=== PATIENT | female | born 1940 | race Caucasian/White ===

== ENCOUNTER → 2016-12-10 | Outpatient (CLI) | payer OTHER ==
[~2016-12-10] MED LIST: OXYC1TAB3 PO
[2016-12-10 09:37] LABS: BASO % 0.7 %; BASO ABS # 0.03 K/uL (0-0.2); COMPLETE YES; EOS % 5.6 %; HEMATOCRIT 44.7 % (37-47); IG% 0.2 %; LYMPH % 30.6 %; LYMPH ABS # 1.36 K/uL (1.2-3.4); MEAN CELL VOLUME 94.9 fL (80-100); MEAN CORPUSCULAR HGB CONC 32.7 g/dl (32-36); MEAN PLATELET VOLUME 9.4 fL (7.4-10.4); MONO % 10.8 %; NEUT % 52.1 %; PLATELET COUNT 204 K/uL (130-400); RED BLOOD COUNT 4.71 M/uL (4.2-5.4); WHITE BLOOD COUNT 4.45 K/uL (4.8-10.8)
[2016-12-10 10:06] LABS: ALT/SGPT 40 U/L (12-78); BLOOD UREA NITROGEN 16 mg/dl (7-18); BUN/CREATININE RATIO 22.1 (10-20); CARBON DIOXIDE 28 mmol/L (21-32); CHLORIDE 106 mmol/L (98-107); CREATININE 0.73 mg/dl (0.60-1.20); GLUCOSE 97 mg/dl (70-99); POTASSIUM 5.1 mmol/L (3.5-5.1); SODIUM 139 mmol/L (136-145)
[2016-12-10 10:17] LABS: ALB/GLOB RATIO 1.2 (0.9-2); ALKALINE PHOSPHATASE 97 U/L (45-117); AST/SGOT 32 U/L (15-37); ESTIMATED AVERAGE GLUCOSE 114 mg/dl; HA1C FLAG Normal (Normal); THYROID STIMULATING HORMONE 0.949 uIu/ml (0.300-4.500)
== END | disposition home or self-care (01) ==
LOC: C.LAB1850 06:47
PROVIDERS: ATTEND Internal Medicine
DX: Z00.00 Encounter for general adult medical examination without abnormal findings (principal); R42 Dizziness and giddiness; R73.9 Hyperglycemia, unspecified; D72.819 Decreased white blood cell count, unspecified; E03.9 Hypothyroidism, unspecified

== ENCOUNTER → 2017-11-18 | Outpatient (CLI) | payer OTHER ==
[2017-11-18 09:46] LABS: BASO % 1.4 %; BASO ABS # 0.06 K/uL (0-0.2); EOS % 8.7 %; EOS ABS # 0.36 K/uL (0-0.5); HEMATOCRIT 43.8 % (37-47); HEMOGLOBIN 14.5 g/dL (12.0-16.0); LYMPH % 40.2 %; LYMPH ABS # 1.67 K/uL (1.2-3.4); MEAN CELL VOLUME 91.6 fL (80-100); MEAN CORPUSCULAR HEMOGLOBIN 30.3 pg (25-34); MEAN CORPUSCULAR HGB CONC 33.1 g/dl (32-36); MEAN PLATELET VOLUME 9.2 fL (7.4-10.4); MONO % 9.9 %; MONO ABS # 0.41 K/uL (0.11-0.59); NEUT % 39.8 %; NEUT ABS # 1.65 K/uL (1.4-6.5); PLATELET COUNT 224 K/uL (130-400); RED CELL DISTRIBUTION WIDTH CV 13.6 % (11.5-14.5); WHITE BLOOD COUNT 4.15 K/uL (4.8-10.8)
[2017-11-18 09:49] LABS: BLOOD UREA NITROGEN 16 mg/dl (7-18); CALCIUM 8.6 mg/dl (8.5-10.1); CARBON DIOXIDE 28 mmol/L (21-32); CHOLESTEROL 176 mg/dl (0-200); CREATININE 0.74 mg/dl (0.60-1.20); GLUCOSE 92 mg/dl (70-99); SODIUM 136 mmol/L (136-145)
[2017-11-18 09:59] LABS: LDL CHOLESTEROL CALCULATED 78 mg/dl
[2017-11-18 10:10] LABS: HEMOGLOBIN A1C 5.6 % (4.5-5.6)
== END | disposition home or self-care (01) ==
LOC: C.LAB1850 07:02
PROVIDERS: ATTEND Internal Medicine
DX: D72.819 Decreased white blood cell count, unspecified (principal); E03.9 Hypothyroidism, unspecified; R73.9 Hyperglycemia, unspecified

== ENCOUNTER 2023-05-19 12:43 | Observation (INO) ==
[2023-05-19] MEDS ORDERED: ONDANSETRON INJ 2 MG/ML 2 ML VIAL ONE (13:15)
[2023-05-19] MEDS ORDERED: dilTIAZem HCl 5 MG/ML 5 ML VIAL IV STA (13:31)
[2023-05-19 13:38] LABS: Hemoglobin 15.2 g/dl (12.0-16.0); Mean Corpuscular Hemoglobin 29.8 pg (25.0-34.0); Mean Corpuscular Volume 90.2 fL (80.0-100.0); Mean Platelet Volume 8.9 fL (9.4-12.4); Platelet Count 253 K/uL (130-400); RDW Coefficient of Variation 13.2 % (11.5-14.5); White Blood Count 6.24 K/ul (4.8-10.8)
[2023-05-19] MEDS ORDERED: SODIUM CHLORIDE 0.9% 1,000 ML IV SCH (13:45)
[2023-05-19 13:50] LABS: Albumin Globulin Ratio 1.5 (0.9-2); Albumin Level 4.5 gm/dl (3.4-5.0); BUN Creatinine Ratio 25.4 (10-20); Bilirubin,Total 0.6 mg/dl (0.2-1.0); Calcium 9.5 mg/dl (8.6-10.3); Creatinine Clr Calc Pharmacy 58.9 ml/min; Est GFR (African American) 95.5 ml/min; Est GFR (Non-African American) 82.4 ml/min; Globulin 3.1 gm/dl (2.5-4.0); Magnesium 2.3 mg/dl (1.7-2.4); Potassium 3.9 mmol/L (3.5-5.1); Total Protein 7.6 gm/dl (6.0-8.3)
[2023-05-19] MEDS ORDERED: OPTIRAY 320 500ml IV ONE (14:00)
[2023-05-19 14:04] LABS: Partial Thromboplastin Time 27.3 Seconds (21.0-31.0); Prothrombin Time 11.2 Seconds (9.0-12.0)
--- NOTE | 2023-05-19 14:11 | XRay Report ---
XR chest 1V portable CLINICAL HISTORY: stroke alert COMPARISON STUDY: No previous studies for comparison. FINDINGS: Lung volumes are normal. Lungs are clear. There is no pneumothorax or pleural effusion. Car diac size is normal. Mediastinal contours are normal. There is no evidence for pulmonary edema. IMPRESSION: No acute cardiopulmonary findings. ACT 112: Negative or not required by law. Electronically signed by: Jared Moraes M.D. 05/19/2023 2:10 PM
--- NOTE | 2023-05-19 14:30 | CT Scan Report ---
CT OF THE HEAD WITHOUT CONTRAST CLINICAL HISTORY: Neuro deficit, acute, stroke suspected COMPARISON STUDY: Sinus CT May 27, 2018. TECHNIQUE: Helical axial images of the head were obtained without IV contrast. Automated exposure con trol was utilized for the study. A dose lowering technique was utilized adhering to the principles o f ALARA. FINDINGS: No acute intracranial hemorrhage, midline shift or mass effect is present. The ventricular system is unremarkable. The basal cisterns are patent. No extra-axial collections are present. There are no findings to suggest acute dural sinus thrombosis or acute territorial infarct. No significant calvarial abnormalities are present. Right parafalcine calcification/ossification is incidentally not ed. IMPRESSION: No acute intracranial findings. ACT 112: Negative or not required by law. Electronically signed by: Jared Moraes M.D. 05/19/2023 2:29 PM
--- NOTE | 2023-05-19 14:32 | CT Scan Report ---
CT ANGIOGRAM OF THE NECK CLINICAL HISTORY: Neurological deficit. Stroke like symptoms. COMPARISON STUDY: No priors. TECHNIQUE: Following the IV administration of 111 of Optiray 320, CT angiogram of the neck was perfor med from the aortic arch to the skull base. Images are reviewed in the axial, sagittal, and coronal p lanes. 3-D MIPS images are created and assessed. IV contrast was administered without complication. A ll measurements were calculated based on NASCET criteria. A dose lowering technique was utilized adh ering to the principles of ALARA. FINDINGS: Thoracic aorta: Visualized portions of the thoracic aorta are normal in caliber. The aortic arch demo nstrates standard 3-vessel anatomy. Right carotid arterial system: The right common carotid artery is widely patent, as are the right int ernal and external carotid arteries. The right internal carotid artery demonstrates a beaded appearan ce. Left carotid arterial system: The left common carotid artery is widely patent, as are the left environmental health and safety intern al and external carotid arteries. The left internal carotid artery demonstrates a beaded appearance. Vertebral arteries: The vertebral arteries are widely patent bilaterally noting left-sided dominance. The right vertebral artery is diminutive. Subclavian arteries: Widely patent bilaterally. Intracranial vasculature: The visualized intracranial vessels at the skull base are patent. Jugular veins: Widely patent bilaterally. Brain parenchyma: The visualized brain parenchyma the skull base is within normal limits. Lung apices: Partially visualized upper lobe lung parenchyma appears clear. Soft tissues: The visualized pharyngeal soft tissues are normal in appearance noting angiographic pha se technique. The oropharyngeal airway appears widely patent. The thyroid gland is atrophic. The sali vary glands are normal in appearance. No cervical lymphadenopathy is seen. Skeletal structures: The skeletal structures are osteopenic. The visualized calvarium at the skull ba se appears intact. The imaged cervical spine is maintained noting mild multilevel spondylosis. Sinuses and mastoids: The visualized paranasal sinuses are clear. The mastoid air cells are well pneu matized. IMPRESSION: 1. The internal carotid arteries demonstrate a beaded appearance bilaterally suggesting fibromuscular dysplasia. 2. Otherwise unremarkable CT angiogram of the neck. The carotid and vertebral arteries are widely pat ent bilaterally. ACT 112: Negative or not required by law. Electronically signed by: Keegan Foote M.D. 05/19/2023 2:31 PM
[2023-05-19 14:33] LABS: Troponin I High Sensitivity 8.2 pg/ml (0-14)
--- NOTE | 2023-05-19 14:42 | CT Scan Report ---
HEAD CTA HISTORY: neuro deficit, acute stroke suspected TECHNIQUE: Multiaxial CT images of the head were performed both before and after the intravenous admi nistration of contrast to evaluate the major cerebral vessels. 3D/MIP images were also obtained. Sag ittal and coronal reformats were reviewed. A dose lowering technique was utilized adhering to the char [place]. COMPARISON: None. FINDINGS: There is no mass, hematoma, midline shift, or acute infarct. Visualized intracranial actuarial internship al carotid arteries, distal vertebral arteries, and basilar artery are widely patent. There is no sig nificant stenosis, occlusion, or aneurysm seen within the bilateral ACAs, MCAs, or plisse machine operator helper. Right parafa lcine calcification is noted. The major dural venous sinuses appear patent. The slightly hypoplastic distal right vertebral artery terminates into the right posterior inferior cerebellar artery. This is considered to be a normal variant. Therefore, the basilar artery is fed through the dominant left ve rtebral artery. There is a persistent left posterior circulation. IMPRESSION: No significant stenosis, occlusion, or aneurysm within the [place]. ACT 112: Negative or not required by law. Electronically signed by: Deepak Street M.D. 05/19/2023 2:39 PM
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
[2023-05-19 15:16] LABS: Basophils # (auto) 0.05 K/uL (0.00-0.20); Basophils % (auto) 0.8 %; Eosinophils # (auto) 0.02 K/uL (0.00-0.50); Eosinophils % (auto) 0.3 %; Immature Granulocytes # (auto) 0.02 K/uL (0.01-0.20); Immature Granulocytes % (auto) 0.3 %; Lymphocytes # (auto) 0.83 K/uL (1.20-3.40); Lymphocytes % (auto) 13.8 %; Monocytes # (auto) 0.15 K/uL (0.11-0.59); Monocytes % (auto) 2.5 %; Neutrophils # (auto) 4.96 K/uL (1.40-6.50); Neutrophils % (auto) 82.3 %
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
[2023-05-19] MEDS ORDERED: ACETAMINOPHEN 325 MG TAB PO STA ×2 (16:51→17:46)
--- NOTE | 2023-05-19 17:38 | Electrocardiogram Report ---
Test Reason : Blood Pressure : / mmHG Vent. Rate : 130 BPM Atrial Rate : 000 BPM P-R Int : 000 ms QRS Dur : 070 ms QT Int : 304 ms P-R-T Axes : 000 068 050 degrees QTc Int : 447 ms Atrial fibrillation with rapid ventricular response Nonspecific ST abnormality Abnormal ECG When compared with ECG of 26-FEB-2005 10:15, Atrial fibrillation has replaced Sinus rhythm Vent. rate has increased BY [address] now depressed in Inferior leads ST now depressed in Anterior leads Nonspecific T wave abnormality now evident in Inferior leads T wave amplitude has increased in Anterior leads Confirmed by Angel Tavarez ([id number]) on 05/19/2023 5:38:06 PM Referred By: REFERRED SELF Confirmed By:Estrada Tavarez
[2023-05-19] MEDS ORDERED: ONDANSETRON INJ 2 MG/ML 2 ML VIAL IV STA (17:47)
[2023-05-19] MEDS ORDERED: METOPROLOL TARTRATE 25 MG TAB PO STA (17:48)
[2023-05-19 18:11] LABS: C Reactive Protein < 0.50 mg/dl (0-0.5)
[2023-05-19 18:20] LABS: Troponin I High Sensitivity 12.3 pg/ml (0-14)
[2023-05-19 19:07] LABS: T4 Free Thyroxine 0.87 ng/dl (0.61-1.60)
--- NOTE | 2023-05-19 20:18 | Magnetic Resonance Report ---
Exam(s): MRI HEAD Without Contrast EXAM: MR Head Without Intravenous Contrast CLINICAL HISTORY: Reason for exam: left facial/arm numbness. TECHNIQUE: Magnetic resonance images of the head/brain without intravenous contrast in multiple planes. COMPARISON: No relevant prior studies available. FINDINGS: No acute territorial infarct. No acute intracranial hemorrhage. No midline shift or mass effect. The territorial lin-white matter differentiation is maintained throughout. Age-related cerebral volume loss. Periventricular and subcortical white matter T2 signal intensity, consistent with chronic microangiopathy. The visualized orbits appear grossly unremarkable. The calvarium is intact. The visualized paranasal sinuses and mastoid air cells are grossly clear. IMPRESSION: No acute territorial infarct. No acute intracranial hemorrhage. No midline shift or mass effect. Electronically signed by: Grey Piper MD 05/19/23 20:17 PM
[2023-05-19] MEDS ORDERED: LORazepam 0.5 MG TAB PO PRN (21:17)
[2023-05-19] MEDS ORDERED: CETIRIZINE HCL 10 MG TABLET PO PRN (21:17)
[2023-05-19] MEDS: CYCLOBENZAPRINE HCL 10 MG TAB PO PRN (22:52)
[2023-05-19] MEDS: APIXABAN 5 MG TABLET PO SCH (23:31)
[2023-05-20 07:36] LABS: Basophils # (auto) 0.06 K/uL (0.00-0.20); Basophils % (auto) 1.1 %; Eosinophils # (auto) 0.17 K/uL (0.00-0.50); Hematocrit (blood only) 38.8 % (37.0-47.0); Hemoglobin 12.7 g/dl (12.0-16.0); Immature Granulocytes # (auto) 0.01 K/uL (0.01-0.20); Immature Granulocytes % (auto) 0.2 %; Lymphocytes # (auto) 1.39 K/uL (1.20-3.40); Lymphocytes % (auto) 24.9 %; Mean Corpuscular Hgb Conc 32.7 g/dL (32.0-36.0); Mean Corpuscular Volume 91.5 fL (80.0-100.0); Mean Platelet Volume 8.9 fL (9.4-12.4); Monocytes % (auto) 10.7 %; Neutrophils # (auto) 3.36 K/uL (1.40-6.50); Neutrophils % (auto) 60.1 %; Platelet Count 219 K/uL (130-400); RDW Coefficient of Variation 13.5 % (11.5-14.5); RDW Standard Deviation 45.7 fL (36.4-46.3); Red Blood Count 4.24 M/uL (4.20-5.40); White Blood Count 5.59 K/ul (4.8-10.8)
[2023-05-20 07:57] LABS: BUN Creatinine Ratio 18.8 (10-20); Calcium 8.7 mg/dl (8.6-10.3); Creatinine Clr Calc Pharmacy 57.2 ml/min; Est GFR (African American) 94.6 ml/min; Est GFR (Non-African American) 81.6 ml/min; Potassium 4.1 mmol/L (3.5-5.1)
[2023-05-20] MEDS: APIXABAN 5 MG TABLET PO SCH (08:27)
[2023-05-20] MEDS: CYCLOBENZAPRINE HCL 10 MG TAB PO PRN (08:27)
[2023-05-20] MEDS ORDERED: METOPROLOL TARTRATE 25 MG TAB PO SCH (09:00)
--- NOTE | 2023-05-20 12:00 | XCELERA ---
[id number]
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
--- NOTE | 2023-05-20 15:43 | Cardiology Consultation ---
Date of Consultation May 20, 2023 Assessment & Plan (1) New onset atrial fibrillation: (2) Mitral regurgitation: Plan 1. Atrial fibrillation: No documented history of atrial fibrillation previously. She feels that occasionally she will have some exertional intolerance perhaps related atrial fibrillation. Very rare sensation of palpitations or tachycardia. She is not very symptomatic with the episode presentation. . She eventually converted to a sinus rhythm. Echocardiogram demonstrated on [id number] mitral regurgitation. No severe heart disease. Normal LV function overall. Likely etiology of her atrial fibrillation is simply age. Based on her risk factors she should undergo systemic anticoagulation. We discussed options. She does take some nonsteroidal medications on occasion for her neck pain. This was discouraged with initiation of anticoagulation. I will continue metoprolol tartrate 25 mg twice daily. She appears to be a good candidate for either Xarelto or Eliquis at the time of discharge. Patient can follow-up in our clinic or with her primary care physician Dr. Daniels for continued management and adjustment of medications if needed. 2. Mitral regurgitation: Mild to moderate. Normal LV systolic function. Unlikely to be a significant problem with the course of her lifetime. This can be monitored over time History of Present Illness Reason for Consultation: Atrial fibrillation Requesting Physician: Julio Cesar Attending Physician: Acosta Harrell MD History of Present Illness The patient is an 83-year-old woman without a known history of cardiac disease presents to the hospital for symptoms of neck and head discomfort. He has suffered from similar symptoms in the past. She was doing some physical activity which likely exacerbated this condition. When she presented to the emergency room she was noted to have atrial fibrillation and elevated heart rates. She was not aware of palpitations. However, she does occasionally experience some higher heart rates. She also reports an element of exertional dyspnea at times which is fairly transient. The patient was administered and provided some analgesics. Shortly after admission she converted back to a normal sinus rhythm. At time my interview she states she still has some residual neck discomfort. However, she is generally feeling well. She has been ambulatory. She denies any dizziness or shortness of breath currently. No chest pain. No history of chest pain. Allergies Allergy/AdvReac Type Severity Reaction Status Date / Time chloramphenicol Allergy Unknown ANAPHYLAXIS Verified 05/19/23 17:13 nitrofurantoin Allergy Unknown Unknown Verified 05/19/23 17:13 Penicillins Allergy Unknown ANAPHYLAXIS Verified 05/19/23 17:13 Demerol TABS Allergy Unknown Unknown Uncoded 05/19/23 17:13 Methocarbamol TABS Allergy Unknown Unknown Uncoded 05/19/23 17:13 Home Medications Medication Instructions Recorded Confirmed Type cetirizine 10 mg tablet (Zyrtec) 5 mg PO DAILY PRN Allergy Symptoms 01/02/20 05/19/23 History cyclobenzaprine 10 mg tablet 10 mg PO TID PRN muscle spasm #90 01/21/23 05/19/23 Rx tabs lorazepam 0.5 mg tablet 0.5 mg PO TID PRN anxiety #90 tabs 01/25/23 05/19/23 Rx Thyroid Surveying Teacher 2 units PO DAILY 05/19/23 05/19/23 History apixaban 5 mg tablet (Eliquis) 5 mg PO BID #60 tabs 05/20/23 Rx metoprolol tartrate 25 mg tablet 25 mg PO BID #60 tabs 05/20/23 Rx Patient History Medical History (Updated 05/20/23 @ 15:39 by Angel Tavarez MD) Health care maintenance Leukopenia Chronic low back pain Hyperglycemia Hypothyroidism Surgical History S/P mastectomy, bilateral S/P tonsillectomy and adenoidectomy S/P cystoscopy Family History Mother Breast cancer Colorectal cancer Nephrolithiasis Father Heart disease Myocardial infarction Son Nephrolithiasis Uncle Nephrolithiasis Gastric cancer Grandfather (Maternal) Gastric cancer Other Crohn's disease Denies family history of Ovarian cancer Prostate cancer Social History Smoking Status: Never smoker Second Hand Exposure: Yes; Hx Alcohol Use: No Hx Substance Use: No Preferred Language: Croatian Communication Ability: Effective Visual Impairment: No Limitations Hearing Ability: Normal Hospice Aide Required: No Beliefs That Will Affect Care: None marital status: / Current Living Situation: Alone Current Living Situation Comment: single family house current occupational status: retired Feels Safe at Home: Yes Childhood Exposure to Second-Hand Smoke: Yes Dental Care, Regularly: Yes Physical Activity Frequency: Daily Physical Activity Frequency Comment: walking Seatbelt Use: always Sunscreen Use: No Assistive Devices: None Review of Systems Review of Systems: Per HPI Physical Exam Physical Exam: She is alert and oriented x3. Mood affect appear normal. She answered all questions appropriately. HEENT: Sclerae are anicteric. Pupils are equal and reactive to light and accommodation. Extraocular movements were intact. Neuro: Cranial nerves intact Lungs: Lungs are clear to auscultation bilaterally. There are no rales wheezes or rhonchi. She has normal respiratory effort without use of accessory muscles. There is normal pulmonary excursion. Cardiac: The rhythm was regular. S1 and S2 were normal. There are no murmurs on examination. The PMI was not markedly displaced on palpation. Extremities: Patient has bilateral radial pulses that are equal in intensity. There is no evidence cyanosis or clubbing. There was no evidence of significant peripheral edema bilaterally. Skin: There are no rashes noted on examination today. Results & Data Vital Signs (Past 12 Hours) Vital Signs Temp Pulse Pulse Pulse Resp BP Pulse Ox 05/20/23 14:02 36.9 C 66 77 16 123/78 97 05/20/23 11:51 36.9 C 66 16 123/78 97 05/20/23 07:42 36.7 C 72 16 131/75 95 05/20/23 07:19 71 05/20/23 04:31 36.5 C 77 18 116/65 93 O2 Del Method 05/20/23 14:02 05/20/23 11:51 Room Air 05/20/23 07:42 Room Air 05/20/23 07:19 05/20/23 04:31 Room Air Laboratory Results Abnormal Lab Results 05/19/23 05/19/23 05/20/23 13:14 17:38 07:09 WBC 5.59 RBC 4.24 Hgb 12.7 Hct 38.8 MCV 91.5 MCH 30.0 MCHC 32.7 RDW Std Deviation 45.7 RDW Coeff of Alexandra 13.5 Plt Count 219 MPV 8.9 L Immature Gran % (Auto) 0.2 Neut % (Auto) 60.1 Lymph % (Auto) 24.9 Sabine % (Auto) 10.7 Eos % (Auto) 3.0 Baso % (Auto) 1.1 Neut # (Auto) 3.36 Lymph # (Auto) 1.39 Sabine # (Auto) 0.60 H Eos # (Auto) 0.17 Baso # (Auto) 0.06 Immature Gran # (Auto) 0.01 ESR 30 Sodium 138 Potassium 4.1 Chloride 105 Carbon Dioxide 28 Anion Gap 5 BUN 13 Creatinine 0.69 Est Cr Clr Drug Dosing 57.2 Est GFR ( Amer) 94.6 Est GFR (Non-Af Amer) 81.6 BUN/Creatinine Ratio 18.8 Glucose 103 H Calcium 8.7 Troponin I High Sens 12.3 D C-Reactive Protein < 0.50 TSH 0.070 L Free T4 0.87 Diagnostic Findings 05/20/2023: Normal LV systolic function with ejection fraction of 60-65%. Mild right atrial dilation. Mild to moderate mitral regurgitation. PG Care Time/CCT Total # of Minutes Spent Total Time Spent with Patient: Total time spent is greater than 50% in coordination of care (as documented) at patient's floor/unit and/or counseling patient: Coding Level of Care Code 32043 INT INP/OBS CARE 3/75MIN Diagnoses New onset atrial fibrillation I48.91 Mitral regurgitation I34.0
--- NOTE | 2023-05-21 12:19 | Electrocardiogram Report ---
Test Reason : Blood Pressure : / mmHG Vent. Rate : 066 BPM Atrial Rate : 066 BPM P-R Int : 198 ms QRS Dur : 074 ms QT Int : 406 ms P-R-T Axes : 076 073 065 degrees QTc Int : 425 ms Normal sinus rhythm Normal ECG When compared with ECG of 19-MAY-2023 13:23, Sinus rhythm has replaced Atrial fibrillation Vent. rate has decreased BY [address] elevation has replaced ST depression in Inferior leads ST no longer depressed in Anterior leads Nonspecific T wave abnormality no longer evident in Inferior leads Confirmed by Angel Tavarez ([id number]) on 05/21/2023 12:19:09 PM Referred By: REFERRED SELF Confirmed By:Estrada Tavarez
== END 2023-05-20 14:03 | disposition home or self-care (01) | DRG 310 ==
LOC: ED 12:43 → INTOOBSV 17:07 → EDINP 17:07 → SUATTDRO 17:07 → 2N 20:02